=== PATIENT | female | born 1935 | race Caucasian/White ===

== ENCOUNTER 2017-09-03 07:17 | Day surgery (SDC) | payer OTHER ==
[2017-09-02 13:23] VITALS: BMI 21.9
[2017-09-03] MEDS: CYCLOPENTOLATE 2% OPHTH SOLN 2 ML BOTTLE ONE ×3 (08:10→08:20)
[2017-09-03] MEDS: PHENYLEPHRINE 2.5% OPHTH SOLN 15 ML BOTTLE ONE ×3 (08:10→08:20)
[2017-09-03] MEDS: CIPROFLOXACIN 0.3% EYE DROPS 5 ML BOTTLE ONE ×3 (08:10→08:20)
[2017-09-03] MEDS: TROPICAMIDE 1% OPHTH SOLN 15 ML BOTTLE ONE ×3 (08:10→08:20)
[2017-09-03] MEDS ORDERED: MIDAZOLAM HCL 2 MG/2 ML SINGLE DOSE VIAL ONE (08:29)
--- NOTE | 2017-09-03 09:34 | OP ---
DATE OF OPERATION: 09/03/2017 OPERATIVE PROCEDURE: Lens phacoemulsification with posterior chamber intraocular lens placement, left eye. PREOPERATIVE DIAGNOSIS: Visually significant cataract of left eye. POSTOPERATIVE DIAGNOSIS: Visually significant cataract of left eye. SURGEON: Morgan Seymour MD ANESTHESIA: MAC. ANESTHESIOLOGIST: PROCEDURE: The patient was brought to the operating room and placed under monitored anesthesia care by Anesthesia. A drop of Tetracaine was then placed over the left eye. The patient was then prepped and draped in the usual sterile manner. A speculum was then placed over the left eye. The eye was then well irrigated with copious amounts of BSS (balanced salt solution). The operating microscope was then moved into position. A paracentesis was performed using a 15-degree blade. At this point, 0.5 mL of 1% preservative-free lidocaine was injected into the anterior chamber. Amvisc Plus was then injected into the anterior chamber. A clear corneal incision was then formed using a 2.2-mm keratome. A capsulorrhexis was then performed in a continuous circular fashion beginning with a cystotome completed with a Utrata forceps. Hydrodissection was then performed using BSS on a cannula. The phacoemulsification probe was then introduced through the corneal wound and the cataract was removed using the phacoemulsification-chop technique. Approximately 3 seconds of absolute phacoemulsification time was used. The remaining cortex was then removed using irrigation and aspiration with an I/A probe. The capsule was then filled with regular Amvisc and the capsule was noted to be intact. A previously selected foldable posterior chamber intraocular lens was then injected into the capsule through the corneal wound using a lens injector. It was then dialed into position using a Sinskey hook. The Amvisc was then removed using irrigation and aspiration. Miostat was then injected through the paracentesis to constrict the pupil. The paracentesis and corneal wound were then hydrated and noted to be watertight. A drop of Maxitrol was then placed over the eye. The speculum was removed and clear shield was taped over the eye. The patient tolerated the procedure well and there were no surgical complications. The patient was asked to follow up in my office the next day. MORGAN SEYMOUR M.D. RAMIREZ/[id number]
[2017-09-03 13:10] VITALS: TEMP 98.2
[2017-09-03 13:14] VITALS: BP 144/77; PULSE 62
== END 2017-09-03 10:00 | disposition home or self-care (01) ==
LOC: FASU 07:17
PROVIDERS: ATTEND Ophthalmology
PROC: 08RK3JZ Replacement of Left Lens with Synthetic Substitute, Percutaneous Approach (ICD-10-PCS; principal; 2017-09-03 09:04)
DX: H26.8 Other specified cataract (principal)

== ENCOUNTER 2018-01-08 13:27 | Emergency (ER) | payer OTHER ==
[2018-01-08 13:43] VITALS: TEMP 98.2; BMI 22.8
--- NOTE | 2018-01-08 14:08 | PDOC ---
History of Present Illness - General Chief Complaint: Burn Stated Complaint: LEFT FOOT BURN Time Seen by Provider: 01/08/18 13:44 - History of Present Illness Initial Comments: 01/08/18 15:17 Chief complaint: Burn left foot History of present illness: Patient dropped some chicken soup on her left foot several days ago. She is concerned about the appearance of the burn, fearing that it is infected. However, there is minimal pain, and no drainage. Review of systems: Denies fever/chills, lightheadedness or dizziness, chest pain , shortness of breath, abdominal pain, nausea, vomiting, diarrhea, distal numbness tingling or weakness the lower extremity. Past medical history, family history, social history reviewed and noncontributory Physical exam: Alert and oriented no acute distress cheerful and cooperative Afebrile, vital signs normal except for initially elevated blood pressure, which normalized with relaxation. Left foot: 6 cm x 4 cm second degree burn of the mid dorsal foot. No surrounding erythema or warmth. There is is eschar which is yellowish in color over approximately one third of the burn. The rest of the burn shows healthy granulation tissue. Impression: Minimal amount of necrotic tissue, without sign of significant infection. Plan: The necrotic tissue was debrided to healthy red granulation tissue. Nonstick dressing was applied. The patient was fully ambulatory in no pain upon discharge. She is advised to return in 2 days for wound check and debridement if necessary. 01/08/18 15:23 Past History - Past Medical History Allergies/Adverse Reactions: Allergies Allergy/AdvReac Type Severity Reaction Status Date / Time guaifenesin [From Robitussin] Allergy Severe DIZZY,WEAK, Verified 01/08/18 13:28 FELL Home Medications: Ambulatory Orders Aspirin [ASA -] 325 mg PO ASDIR PRN 04/25/17 Digoxin [Digitek] 125 mcg PO DAILY 04/25/17 Losartan Potassium 100 mg PO DAILY 04/25/17 Vit C/Vit E AC/Lut/Copper/Zinc [Preservision Lutein Softgel] 1 each PO DAILY Anemia: No Asthma: No Cancer: No Cardiac Disorders: Yes (H/O ATRIAL FIB X 5 YEARS) CVA: No COPD: No CHF: No Dementia: No Diabetes: No GI Disorders: No Disorders: No HTN: Yes Hypercholesterolemia: No Liver Disease: No Seizures: No Thyroid Disease: No - Surgical History Abdominal Surgery: No Appendectomy: No Cardiac Surgery: No Cholecystectomy: No Lung Surgery: No Neurologic Surgery: No Orthopedic Surgery: No - Suicide/Smoking/Psychosocial Hx Smoking History: Never smoked Have you smoked in the past 12 months: No Information on smoking cessation initiated: No Hx Alcohol Use: No Drug/Substance Use Hx: No Substance Use Type: Alcohol Hx Substance Use Treatment: No *Physical Exam - Vital Signs Last Vital Signs Temp Pulse Resp BP Pulse Ox 98.2 F 76 20 177/105 H 100 01/08/18 13:28 01/08/18 13:28 01/08/18 13:28 01/08/18 13:28 01/08/18 13:28 Moderate Sedation - Procedure Monitoring Vital Signs: Procedure Monitoring Vital Signs Temperature 98.2 F 01/08/18 13:28 Pulse Rate 76 01/08/18 13:28 Respiratory Rate 20 01/08/18 13:28 Blood Pressure 177/105 H 01/08/18 13:28 O2 Sat by Pulse Oximetry (%) 100 01/08/18 13:28 *DC/Admit/Observation/Transfer Diagnosis at time of Disposition: Second degree burn injury - Discharge Dispostion Disposition: HOME Condition at time of disposition: Improved Decision to Admit order: No - Referrals - Patient Instructions Printed Discharge Instructions: How to Take Care of a Burn, DI for [place] Additional Instructions: Return for wound care 2 days rest and elevate. - Post Discharge Activity
[2018-01-08 15:28] VITALS: BP 162/88; PULSE 87
== END 2018-01-08 14:22 | disposition home or self-care (01) ==
LOC: FER 13:27
DX: T25.022A Burn of unspecified degree of left foot, initial encounter (principal); T25.222A Burn of second degree of left foot, initial encounter; T79.9XXA Unspecified early complication of trauma, initial encounter; X10.1XXA Contact with hot food, initial encounter; Y93.89 Activity, other specified; Y92.89 Other specified places as the place of occurrence of the external cause; I10 Essential (primary) hypertension; I48.91 Unspecified atrial fibrillation
CPT/HCPCS: 99282-25

== ENCOUNTER 2018-01-11 10:20 | Emergency (ER) | payer OTHER ==
[2018-01-11 10:30] VITALS: BP 196/115; PULSE 96; TEMP 97.4; BMI 22.3
--- NOTE | 2018-01-11 10:36 | PDOC ---
Attending Attestation - Resident Resident Name: Ulices Wiggins - ED Attending Attestation I have performed the following: I have examined & evaluated the patient, The case was reviewed & discussed with the resident, I agree w/resident's findings & plan, Exceptions are as noted - HPI HPI: 01/11/18 10:35 82y F hx of afib presents for follow up of a 2nd degree burn on her left foot from sevral days ago, had visited to the ED on 01/08 with some debridement. pt presents today deneis increased pain, fever, discharge. has been using hydrogen peroxide to the wound this morning, but states her pain has improved. wound on dorsum of L foot 4x 2 cm pinkish, +granulation tissue, some erythema without induration/warmth surrounding (pt notes it si better than 3 daysa go when she was in the ED) area was encircled - and told sean tif the redness spreads further she should come to the ED recommend bacitracin BID until healed told to look for signs of infection will have pt fu with PMD - Physicial Exam PE: 01/11/18 11:13 see above - Medical Decision Making 01/11/18 11:13 see above
--- NOTE | 2018-01-11 10:46 | PDOC ---
History of Present Illness - General Chief Complaint: Revisit,Burn Stated Complaint: FOLLOW UP OF LEFT FOOT BURN Time Seen by Provider: 01/11/18 10:26 History Source: Patient Exam Limitations: No Limitations - History of Present Illness Initial Comments: 01/11/18 10:39 The patient is an 82F with a PMH of HTN, RA who presents to the ER for a follow up on a wound she sustained on 01/08/18. She states that since her prior visit, she has not had any drainage and states that the erythema has improved. She denies any current pain in the area. She denies any numbness, tingling, or weakness. She also denies any fevers or chills. Past History - Past Medical History Allergies/Adverse Reactions: Allergies Allergy/AdvReac Type Severity Reaction Status Date / Time guaifenesin [From Robitussin] Allergy Severe DIZZY,WEAK, Verified 01/11/18 10:21 FELL Home Medications: Ambulatory Orders Aspirin [ASA -] 325 mg PO ASDIR PRN 04/25/17 Digoxin [Digitek] 125 mcg PO DAILY 04/25/17 Losartan Potassium 100 mg PO DAILY 04/25/17 Vit C/Vit E AC/Lut/Copper/Zinc [Preservision Lutein Softgel] 1 each PO DAILY Anemia: No Asthma: No Cancer: No Cardiac Disorders: Yes (H/O ATRIAL FIB X 5 YEARS) CVA: No COPD: No CHF: No Dementia: No Diabetes: No GI Disorders: No Disorders: No HTN: Yes Hypercholesterolemia: No Liver Disease: No Seizures: No Thyroid Disease: No - Surgical History Abdominal Surgery: No Appendectomy: No Cardiac Surgery: No Cholecystectomy: No Lung Surgery: No Neurologic Surgery: No Orthopedic Surgery: No - Suicide/Smoking/Psychosocial Hx Smoking History: Never smoked Have you smoked in the past 12 months: No Information on smoking cessation initiated: No Hx Alcohol Use: Yes (SOCIAL) Drug/Substance Use Hx: No Substance Use Type: Alcohol Hx Substance Use Treatment: No Review of Systems - Review of Systems Able to Perform ROS?: Yes Is the patient limited Latvian proficient: No Integumentary: Yes: Other (Healing wound) *Physical Exam - Vital Signs Last Vital Signs Temp Pulse Resp BP Pulse Ox 97.4 F L 96 H 16 196/115 H 100 01/11/18 10:21 01/11/18 10:21 01/11/18 10:21 01/11/18 10:21 01/11/18 10:21 - Physical Exam Comments: 01/11/18 10:46 GENERAL: Well developed, well nourished. Awake and alert. No acute distress. HEENT: Normocephalic, atraumatic. Hearing grossly normal. Moist mucous membranes. PERRLA, EOMI. No conjunctival pallor. Sclera are non-icteric. NECK: Supple. Full ROM. CARDIOVASCULAR: Regular rate and rhythm. No murmurs, rubs, or gallops. Distal pulses are 2+ and symmetric. PULMONARY: No evidence of respiratory distress. Lungs clear to auscultation bilaterally. No wheezing, rales or rhonchi. ABDOMINAL: Soft. Non-tender. Non-distended. No rebound or guarding. GENITOURINARY: No CVA tenderness bilaterally. MUSCULOSKELETAL: Normal range of motion at all joints. No bony deformities or tenderness. EXTREMITIES: 4X2cm healing wound, stage 2 with surrounding erythema, no warmth to touch on dorsal surface of L foot. No cyanosis. No clubbing. No edema. No calf tenderness or swelling. SKIN: Warm and dry. Normal capillary refill. No rashes. No jaundice. NEUROLOGICAL: Alert, awake, appropriate. Cranial nerves 2-12 grossly intact. Normal speech. Gait is normal without ataxia. Neurovascularly intact in L foot. PSYCHIATRIC: Cooperative. Good eye contact. Appropriate mood and affect. Moderate Sedation - Procedure Monitoring Vital Signs: Procedure Monitoring Vital Signs Temperature 97.4 F L 01/11/18 10:21 Pulse Rate 96 H 01/11/18 10:21 Respiratory Rate 16 01/11/18 10:21 Blood Pressure 196/115 H 01/11/18 10:21 O2 Sat by Pulse Oximetry (%) 100 01/11/18 10:21 Medical Decision Making - Medical Decision Making 01/11/18 10:49 The patient is an 82F who presents for follow up for a wound she sustained by spilling hot soup on her foot. The foot is healing well. The patient states that she has been putting hydrogen peroxide on her wound which I told her to stop. We have drawn a line around the erythema to evaluate the erythema in 2 days. 01/11/18 11:13 Will d/c home with PCP f/u. I informed the patient that she can f/u with PCP instead of ER. *DC/Admit/Observation/Transfer Diagnosis at time of Disposition: Visit for wound check - Discharge Dispostion Disposition: HOME Condition at time of disposition: Stable Decision to Admit order: No - Referrals - Patient Instructions Printed Discharge Instructions: How to Take Care of a Burn Additional Instructions: Please follow up with your primary care physician in 2-3 days. Please keep the wound clean and dry. You can shower but be gentle and pat it dry. Please return to the ER if you have any signs or symptoms of chest pain, shortness of breath, uncontrollable fever, chills, nausea, vomiting, numbness, tingling, or weakness in any part of your body, changes in vision, or slurred speech. Please return to the ER if symptoms persist, worsen, or new symptoms arise. - Post Discharge Activity
== END 2018-01-11 11:21 | disposition home or self-care (01) ==
LOC: FER 10:20
DX: Z48.00 Encounter for change or removal of nonsurgical wound dressing (principal); I10 Essential (primary) hypertension; M06.9 Rheumatoid arthritis, unspecified; I48.91 Unspecified atrial fibrillation
CPT/HCPCS: 99281-25